=== PATIENT | male | born 1970 | race Caucasian/White ===

== ENCOUNTER 2017-03-14 20:54 | Emergency (ER) | payer OTHER ==
[~2017-03-14] VITALS: Ht 170.2 cm; Wt 124.0 kg
[2017-03-14 21:18] VITALS: Ht 170.2 cm; Wt 124.0 kg
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
[2017-03-14] MEDS ORDERED: DIPHTH/TET/ACEL PERTUSS (ADULT) 0.5 ML VIAL IM* ONE (22:00)
[2017-03-14] MEDS ORDERED: TETRACAINE 0.5% 4 ML OPH BOTH EYES ONE (22:00)
[2017-03-14] MEDS ORDERED: FLUORESCEIN STRIP LEFT EYE ONE (22:00)
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
[2017-03-14] MEDS ORDERED: TRAM50TA2 PO (23:22)
[2017-03-14] MEDS ORDERED: VIGA LEFT EYE (23:22)
== END 2017-03-14 23:49 | disposition home or self-care (01) ==
LOC: FTE 20:54
DX: H11.32 Conjunctival hemorrhage, left eye (principal); S09.90XA Unspecified injury of head, initial encounter; W50.0XXA Accidental hit or strike by another person, initial encounter; Y92.9 Unspecified place or not applicable
CPT/HCPCS: 70450; 70480; 90471; 90715; Z7502; Z7610